=== PATIENT | female | born 1995 | race Caucasian/White ===

== ENCOUNTER 2017-09-11 12:10 | Emergency (ER) | payer BC, SELFPAY ==
[2017-09-11 12:11] VITALS: BP 127/74; PULSE 81; RESP 16; TEMP 36.4; O2SAT 99; BMI 26.3
--- NOTE | 2017-09-11 12:27 | RAD_ITS ---
STUDY: X-RAY CHEST REASON FOR EXAM: Female, 21 years old. Cough TECHNIQUE: PA and lateral views of the chest. COMPARISON: None. FINDINGS: The lungs are clear and expanded. There is no demonstrated pleural abnormality. Normal size heart. Normal mediastinum and viv. Normal visualized pulmonary arteries. Normal visualized aortic arch and descending thoracic aorta. Mild dextroscoliosis of the midthoracic spine noted. Normal visualized ribs, clavicles, and shoulders. There is no demonstrated abnormality of the visualized soft tissue structures of the upper abdomen. RAD/Chest PA and Lateral IMPRESSION: No acute intrathoracic process. Electronically Signed: Nakita Pineda MD at 13:11 EDT Tel , Service support ,
[2017-09-11] MEDS: 0.9% Normal Saline 1,000 ML 1000 ML IV (12:45)
[2017-09-11] MEDS: Ondansetron 4 MG/2 ML Vial IV (12:45)
[2017-09-11] MEDS: Ketorolac 30 MG/ML Syringe IV (12:46)
[2017-09-11 13:09] LABS: Absolute Lymphocyte Count 1.33 X10^3/ul (0.83-4.51); Absolute Neutrophil Count 3.6 X10^3/uL (2.0-7.7); Basophil# 0.03 X10^3/uL; Basophil% 0.5 % (0-1); Eosinophil# 0.16 X10^3/uL; Eosinophils% 2.9 % (0-5); Hematocrit 41.9 % (37-47); Hemoglobin 14.8 g/dl (12.0-15.0); Lymphocyte # 1.33 X10^3/ul (4.0); Lymphocyte % 23.9 % (19-41); Mean Corp Hgb Conc 35.3 g/gl (32-36); Mean Corpuscular Hgb 29.8 pg (27.0-32.0); Mean Corpuscular Volume 84.5 fL (81-99); Mean Platelet Vol. 9.8 fl (6.2-12.0); Monocyte# 0.48 X10^3/uL; Monocyte% 8.6 % (0-10); Neutrophil # 3.56 X10^3/uL (2.7-7.7); Neutrophil % 63.9 % (47-70); Platelet Count 276 K/mm3 (150-450); RBC Distribution Width CV 12.3 % (11.6-14.6); RBC Distribution Width SD 37.2 fl (35.1-43.9); Red Blood Count 4.96 M/mm3 (4.2-5.4); White Blood Count 5.6 K/mm3 (4.4-11.0)
[2017-09-11 13:12] LABS: POSITIVE COUNT NO; POSITIVE DIFFERENTIAL NO; POSITIVE MORPHOLOGY NO
[2017-09-11 13:17] LABS: Bacteria 0 SEEN /hpf (None Seen); Mucous, Urine 0 SEEN /hpf (<or=2+); Red Blood Cells-Urine 0 SEEN /hpf (0-5); White Blood Cells 0 SEEN /hpf (0-5)
[2017-09-11 13:20] LABS: Color, Urine Yellow (Yellow); Glucose, Dipstick Normal (Normal); Ketone-Dipstick Negative (Negative); Leukocyte Esterase-Dipstick 25 /ul (Negative); Nitrite-Dipstick Negative (Negative); Occult Blood-Urine Negative /ul (Negative); Protein-Dipstick Negative (Negative); Urine Bilirubin Dipstick Negative (Negative); Urine Clarity Clear (Clear); Urine Urobilinogen Normal (Normal)
[2017-09-11 13:24] LABS: Anion Gap 7 (5-15); BUN 14 mg/dL (7-18); BUN/Creat Ratio 18.7 RATIO (10-20); Calcium,Total 8.8 mg/dL (8.5-10.1); Chloride 108 mmol/L (98-107); Creatinine, Serum 0.75 mg/dL (0.55-1.02); EST Glomerular Filtration Rate 103 mL/min (>60); Est Glom Filt Rate - Afr Amer 125 mL/min (>60); Estimated Creatinine Clearance 115.39 ml/min; Glucose 100 mg/dL (74-106); Potassium 3.7 mmol/L (3.5-5.1); Sodium Level 142 mmol/L (136-145)
[2017-09-11 13:26] LABS: Squamous Epithelial Cells - UA 5-10 SEEN /hpf (5-10)
[2017-09-11 13:33] LABS: Pregnancy, Serum, hCG Quali. NEGATIVE Negative (0-9 Nonpreg)
--- NOTE | 2017-09-11 14:01 | ED.VISSUMM ---
- ER Visit Summary Date of Service: 09/11/17 Chief Complaint: Abdominal pain History of Present Illness: The patient is a [address] [facility] She reports that she has abdominal pain began 4-5 days ago. Sick continuous cramping, aching pain. It is 9 out of 10 at worst and 6 out of 10 currently. Is worsened by food and relieved by heat. She has had nausea without vomiting. She reports her last bowel movement was yesterday. She has had no diarrhea, melena, or hematochezia. No dysuria or frequency. No vaginal bleeding or discharge. Her last menstrual period was 3 weeks ago. Physical Examination: Vitals: Stable. Afebrile. General: Well-nourished and well-developed. Head: Normocephalic atraumatic. Neck: Supple, no lymphadenopathy. No JVD. Nontender. Cardiovascular: Regular rate and rhythm. No murmurs. Respiratory: No respiratory distress. Clear to auscultation bilaterally. Abdominal: Soft, mild diffuse tenderness to palpation, nondistended, normal bowel sounds. No guarding, rebound, or peritoneal signs. Back: Nontender. Extremities: Nontender, no edema. Skin: Normal color, no rash. Neurologic: Alert and oriented ?3. Cranial nerves II through XII are intact. Normal strength and sensation. Psych: Normal affect. Test Results: CBC is normal. Chem-7 is more for chloride of 108. UA is negative. test is negative. Emergency Department Course and Treatment: Patient treated with Toradol and Zofran IV. She is resting comfortably. Treatment Plan: Patient will be discharged with Bentyl and Zofran. Instructed follow-up her primary care physician in 3-5 days not improving. Disposition: To home in improved and stable condition. Impression: 1. Abdominal pain, uncertain cause. This note was generated with [employer] dictation software. It may contain incorrect words, spelling, and punctuation that were not noted in review of the chart prior to signing ED Disposition - Plan for ED Patient: Chief Complaint: Abd Pain Instructions: ED Abdominal Pain Unkn Cause Prescriptions: Ondansetron [Zofran Odt] 4 mg PO Q8H PRN PRN #10 tablet PRN Reason: Nausea Dicyclomine HCl [Bentyl] 20 mg PO TIDAC #20 capsule Referrals: Rebecca Gallegos MD [Primary Care Provider] - 3-5 Days if not improving
--- NOTE | 2017-09-11 14:12 | ED.DCSUM_ITS ---
- ER Visit Summary Date of Service: 09/11/17 Chief Complaint: Abdominal pain History of Present Illness: The patient is a [address] [facility]. She reports that she has abdominal pain began 4-5 days ago. Sick continuous cramping, aching pain. It is 9 out of 10 at worst and 6 out of 10 currently. Is worsened by food and relieved by heat. She has had nausea without vomiting. She reports her last bowel movement was yesterday. She has had no diarrhea, melena, or hematochezia. No dysuria or frequency. No vaginal bleeding or discharge. Her last menstrual period was 3 weeks ago. Physical Examination: Vitals: Stable. Afebrile. General: Well-nourished and well-developed. Head: Normocephalic atraumatic. Neck: Supple, no lymphadenopathy. No JVD. Nontender. Cardiovascular: Regular rate and rhythm. No murmurs. Respiratory: No respiratory distress. Clear to auscultation bilaterally. Abdominal: Soft, mild diffuse tenderness to palpation, nondistended, normal bowel sounds. No guarding, rebound, or peritoneal signs. Back: Nontender. Extremities: Nontender, no edema. Skin: Normal color, no rash. Neurologic: Alert and oriented ?3. Cranial nerves II through XII are intact. Normal strength and sensation. Psych: Normal affect. Test Results: CBC is normal. Chem-7 is more for chloride of 108. UA is negative. test is negative. Emergency Department Course and Treatment: Patient treated with Toradol and Zofran IV. She is resting comfortably. Treatment Plan: Patient will be discharged with Bentyl and Zofran. Instructed follow-up her primary care physician in 3-5 days not improving. Disposition: To home in improved and stable condition. Impression: 1. Abdominal pain, uncertain cause. This note was generated with [employer] dictation software. It may contain incorrect words, spelling, and punctuation that were not noted in review of the chart prior to signing ED Disposition - Plan for ED Patient: Chief Complaint: Abd Pain Instructions: ED Abdominal Pain Unkn Cause Prescriptions: Ondansetron [Zofran Odt] 4 mg PO Q8H PRN PRN #10 tablet PRN Reason: Nausea Dicyclomine HCl [Bentyl] 20 mg PO TIDAC #20 capsule Referrals: Rebecca Gallegos MD [Primary Care Provider] - 3-5 Days if not improving
[2017-09-11 14:19] VITALS: BP 114/63; PULSE 68; RESP 16; O2SAT 97
== END 2017-09-11 14:26 | disposition home or self-care (01) ==
LOC: ED 12:57
PROVIDERS: Emergency Provider Emergency Medicine; Family Provider Internal Medicine; PCP Internal Medicine
DX: R10.9 Unspecified abdominal pain (principal); R11.0 Nausea; R06.00 Dyspnea, unspecified; R05 Cough; R51 Headache; E28.2 Polycystic ovarian syndrome
CPT/HCPCS: 71046; 80048; 81001; 84703; 85025; 96361; 96374; 96375; 99283; J7030; J2405

== ENCOUNTER 2017-11-06 20:15 | Emergency (ER) | payer BC, SELFPAY ==
[2017-11-06 20:16] VITALS: BP 124/86; PULSE 78; RESP 18; TEMP 36.8; O2SAT 98; BMI 26.8
[2017-11-06 20:25] VITALS: O2SAT 100
--- NOTE | 2017-11-06 21:06 | ED.VISSUMM ---
- ER Visit Summary Date of Service: 11/06/17 Chief Complaint: Shortness of breath History of Present Illness: The patient is a 22 F presenting with 3 days of upper respiratory symptoms, rhinorrhea, and cough. She had shortness of breath and wheezing 2 days ago and went to the urgent care. She was given an inhaler and improve transiently but is still coughing and having mild wheezing. She denies recent travel or lower extremity pain/swelling. Denies history of DVT or PE. Never had chest pain during this illness. Physical Examination: Those are within normal limits. Pulse ox is 98% on room air. She is not tachycardic or tachypneic. She has no tenderness along the lower extremity venous system or palpable cords. No evidence of DVT. She does have faint end expiratory wheezing in all lung sheth but is not in distress. Test Results: Chest x-ray negative Emergency Department Course and Treatment: The rest x-rays negative. She was given a DuoNeb and her pulse ox is now 100%. control pills but has no recent travel or clinical evidence of DVT. Additionally, she has no chest pain. She has upper respiratory symptoms and wheezing. I think it is reasonable to start her on an oral steroid and she will continue her inhaler. She will return if worse. Treatment Plan: oral Steroids. Disposition: Home stable condition Impression: Initial encounter shortness of breath, upper respiratory infection, reactive airway disease This note was generated with [employer] dictation software. It may contain incorrect words, spelling, and punctuation that were not noted in review of the chart prior to signing ED Disposition - Plan for ED Patient: Chief Complaint: Shortness of Breath Instructions: ED Upper Resp Infec Abx Tx, ED Reactive Airway Disease Prescriptions: Prednisone [Deltasone] 40 mg PO DAILY #10 tablet Referrals: Rebecca Gallegos MD [Primary Care Provider] - 1-2 Days if not improving
[2017-11-06 21:14] VITALS: PULSE 77; RESP 14
[2017-11-06] MEDS: Ipratropium/Albuterol Sulfate 3 ML AMPUL.NEB INHALATION (21:14)
--- NOTE | 2017-11-06 21:20 | RAD_ITS ---
STUDY: X-RAY CHEST REASON FOR EXAM: Female, 22 years old. Cough TECHNIQUE: PA and lateral COMPARISON: September 11, 2017 FINDINGS: The lungs are clear and expanded. There is no demonstrated pleural abnormality. Normal size heart. Normal mediastinum and viv. Normal visualized pulmonary arteries. Normal visualized aortic arch and descending thoracic aorta. Normal visualized thoracic spine. Normal visualized ribs, clavicles, and shoulders. There is no demonstrated abnormality of the visualized soft tissue structures of the upper abdomen. No significant change since prior exam RAD/Chest PA and Lateral IMPRESSION: Normal x-ray examination of the chest. Electronically Signed: Seth Lizarraga MD at 21:44 EDT , Service support ,
[2017-11-06 22:23] VITALS: BP 118/66; PULSE 77; O2SAT 100
[2017-11-06] MEDS: predniSONE 20 MG Tablet 60 MG PO (22:26)
== END 2017-11-06 22:27 | disposition home or self-care (01) ==
LOC: ED 21:03
PROVIDERS: Emergency Provider Emergency Medicine; Family Provider Internal Medicine; PCP Internal Medicine
DX: J06.9 Acute upper respiratory infection, unspecified (principal); J98.8 Other specified respiratory disorders; R06.00 Dyspnea, unspecified; E28.2 Polycystic ovarian syndrome
CPT/HCPCS: 71046; 94640; 99283

== ENCOUNTER 2018-11-30 20:49 | Emergency (ER) | payer BC, SELFPAY ==
[2018-11-30 20:49] VITALS: BP 104/62; PULSE 81; RESP 17; TEMP 36.7; O2SAT 99; BMI 26.9
[2018-11-30 21:19] LABS: Mucous, Urine 0 SEEN /hpf (<or=2+)
[2018-11-30 21:21] LABS: Color, Urine Yellow (Yellow); Glucose, Dipstick Normal (Normal); Ketone-Dipstick 50 mg/dl (Negative); Leukocyte Esterase-Dipstick 25 /ul (Negative); Nitrite-Dipstick Negative (Negative); Occult Blood-Urine 25 /ul (Negative); Protein-Dipstick 15 mg/dl (Negative); Urine Clarity Clear (Clear); Urine Urobilinogen 1 mg/dl (Normal)
[2018-11-30 21:25] LABS: Urine Bilirubin Dipstick 1 mg/dL (Negative)
[2018-11-30 21:27] LABS: Absolute Neutrophil Count 2.6 X10^3/uL (2.0-7.7); Basophil# 0.01 X10^3/uL; Basophil% 0.2 % (0-1); Eosinophil# 0.12 X10^3/uL; Eosinophils% 2.5 % (0-5); Hematocrit 41.8 % (37-47); Hemoglobin 14.4 g/dl (12.0-15.0); Lymphocyte % 31.8 % (19-41); Mean Corp Hgb Conc 34.4 g/gl (32-36); Mean Corpuscular Hgb 28.7 pg (27.0-32.0); Mean Corpuscular Volume 83.4 fL (81-99); Mean Platelet Vol. 9.1 fl (6.2-12.0); Monocyte# 0.53 X10^3/uL; Monocyte% 11.3 % (0-10); Neutrophil # 2.55 X10^3/uL (2.7-7.7); Neutrophil % 54.2 % (47-70); Platelet Count 230 K/mm3 (150-450); RBC Distribution Width SD 39.1 fl (35.1-43.9); Red Blood Count 5.01 M/mm3 (4.2-5.4); White Blood Count 4.7 K/mm3 (4.4-11.0)
[2018-11-30 21:29] LABS: POSITIVE COUNT NO; POSITIVE DIFFERENTIAL NO; POSITIVE MORPHOLOGY NO
[2018-11-30 21:31] LABS: Red Blood Cells-Urine 0-5 SEEN /hpf (0-5); Squamous Epithelial Cells - UA 10-25 SEEN /hpf (5-10); White Blood Cells 0-5 SEEN /hpf (0-5)
[2018-11-30 21:32] LABS: Bacteria 2+ /hpf (None Seen)
[2018-11-30 21:41] LABS: AST(SGOT) 30 U/L (15-37); Alanine Aminotransfer ALT/SGPT 30 U/L (13-56); Albumin, Serum 3.7 g/dL (3.2-5.0); Alkaline Phosphatase 86 U/L (45-117); Anion Gap 8 (5-15); BUN 13 mg/dL (7-18); BUN/Creat Ratio 16.2 RATIO (10-20); Bilirubin, Direct 0.16 mg/dL (0.00-0.30); Calcium,Total 8.6 mg/dL (8.5-10.1); Chloride 107 mmol/L (98-107); EST Glomerular Filtration Rate 94 mL/min (>60); Est Glom Filt Rate - Afr Amer 114 mL/min (>60); Estimated Creatinine Clearance 106.36 ml/min; Globulin 3.6 g/dL (2.2-4.2); Glucose 101 mg/dL (74-106); Lipase 231 U/L (73-393); Potassium 3.3 mmol/L (3.5-5.1); Protein, Total 7.3 g/dL (6.4-8.2); Sodium Level 139 mmol/L (136-145)
[2018-11-30] MEDS: Ondansetron 4 MG/2 ML Vial IV (21:46)
[2018-11-30] MEDS: Ketorolac 30 MG/ML Syringe IV (21:46)
[2018-11-30] MEDS: 0.9% Normal Saline 1,000 ML 999 ML IV (21:46)
[2018-11-30 21:47] VITALS: PULSE 88; RESP 16; O2SAT 98
--- NOTE | 2018-11-30 23:00 | ED.DCSUM_ITS ---
- ER Visit Summary Date of Service: 11/30/18 Chief Complaint: Abdominal pain History of Present Illness: The patient is a 23 F presenting with abdominal pain. Patient states this started on . She has had intermittent pain diffusely. She states sometimes it is in her upper abdomen sometimes it is in her lower abdomen. She has had nausea without vomiting. She has had diarrhea. She denies blood in her stool. Denies urinary complaints. She had a fever up to 100.0 on . No fever today. She has tried ibuprofen, acetaminophen, Imodium at home. She has a history of PCOS. Denies other complaints. Physical Examination: Vitals are stable. Patient is afebrile. Alert no acute distress. HEENT exam is unremarkable. Neck is supple. Lungs are clear and equal bilaterally. Heart is regular rate and rhythm. Abdomen is soft nontender nondistended. No guarding or rebound Extremities are unremarkable. Skin is warm and dry. Remainder of exam is unremarkable. Emergency Department Course and Treatment: Patient was given Toradol, Zofran IV. CBC, chemistries unremarkable. Liver lipase are normal. Urinalysis shows 0-5 white blood cells, 0-5 red blood cells. hCG negative. On reevaluation, patient's pain has improved. She is advised to follow-up with her primary care physician. Advised return ED for worsening complaints. Disposition: Discharge home Impression: Abdominal pain This note was generated with [employer] dictation software. It may contain incorrect words, spelling, and punctuation that were not noted in review of the chart prior to signing ED Disposition - Plan for ED Patient: Referrals: Rebecca Gallegos MD [Primary Care Provider] -
[2018-11-30 23:02] LABS: Internal QC Validated? YES +Cl - CLEAR BKGD; Pregnancy, Urine Negative Negative
--- NOTE | 2018-11-30 23:10 | ED.DEP ---
ED Disposition - Plan for ED Patient: Instructions: ED Abdominal Pain Unkn Cause Prescriptions: Ondansetron [Zofran Odt] 4 mg PO Q8H PRN PRN #10 tablet PRN Reason: Nausea Dicyclomine HCl [Bentyl] 20 mg PO TIDAC #20 capsule Referrals: Rebecca Gallegos MD [Primary Care Provider] -
[2018-11-30 23:17] VITALS: BP 132/78; PULSE 78; RESP 18; O2SAT 98
--- NOTE | 2018-11-30 23:26 | ED.DEP ---
ED Disposition - Plan for ED Patient: Instructions: ED Abdominal Pain Unkn Cause Prescriptions: Dicyclomine HCl [Bentyl] 20 mg PO TIDAC #20 capsule Ondansetron HCl [Zofran] 4 mg PO TID PRN #12 tablet PRN Reason: Nausea Referrals: Rebecca Gallegos MD [Primary Care Provider] -
== END 2018-11-30 23:29 | disposition home or self-care (01) ==
PROVIDERS: Emergency Provider Emergency Medicine; Family Provider Internal Medicine; PCP Internal Medicine
DX: R10.9 Unspecified abdominal pain (principal); R11.0 Nausea; R19.7 Diarrhea, unspecified; R50.9 Fever, unspecified; E28.2 Polycystic ovarian syndrome; Z72.0 Tobacco use
CPT/HCPCS: 80048; 80076; 81001; 81025; 83690; 85025; 96361; 96374; 96375; 99284; J7030; A4216; J2405

== ENCOUNTER 2019-02-11 11:42 | Emergency (ER) | payer BC, SELFPAY ==
[2019-02-11 11:43] VITALS: BP 119/72; PULSE 77; RESP 16; TEMP 36.3; O2SAT 98; BMI 25.8
--- NOTE | 2019-02-11 12:05 | ED.DCSUM_ITS ---
History of Present Illness Informant: Patient Onset: Yesterday Timing: Continuous Current Severity: Moderate Maximum Severity: Severe Narrative: She has a 23-year-old female presenting with 1 day of right lower quadrant a bdominal pain. She states started 2 PM yesterday while she was at work. She notes she does not do a strenuous job. The pain sometimes radiates down her leg or across her abdomen. The pain seems to be worse with movement and better with rest. Patient states when she woke up today the pain was significantly worse which made her come to the emergency room. She did not take anything for pain at home. She denies associated nausea or vomiting. She states she is a history of IBS and her bowel movements have been irregular but this is normal for her. She denies any blood or black stools. Denies any associated hematuria, dysuria, abnormal vaginal discharge or bleeding. Her last menstrual period was 01/21/2019. Patient states she is not concern for . Patient denies any other complaints at this time. Prior similar symptoms: No <Sonya Jacques - Last Filed: 02/11/19 15:21> <Nato Cantrell - Last Filed: 02/11/19 16:03> Chief Complaint: Abd Pain Past Medical History Past Medical History: - - PCOD, IBS Surgical History: no surgical history Smoking Status: Current some day smoker <Sonya Jacques - Last Filed: 02/11/19 15:21> <Nato Cantrell - Last Filed: 02/11/19 16:03> - Allergies and Home Meds Allergies/Adverse Reactions: Allergies No Known Allergies Allergy (Verified 02/11/19 11:42) Primary Care Physician: Rebecca Gallegos MD [Primary Care Provider] - Review of Systems All systems negative except as indicated Gastrointestinal: Reports: Abdominal pain - RLQ <Sonya Jacques - Last Filed: 02/11/19 15:21> Physical Exam Vital Signs/Narrative: Vital Signs Temp Pulse Resp BP Pulse Ox 02/11/19 11:43 97.3 F L 77 16 119/72 98 Inital Vital Signs reviewed: Yes General: Well nourished, Well developed, No Acute Distress Head: Normocephalic, Atraumatic Eyes: Perrl, EOMI ENT: Moist mucous membranes, No rhinorrhea Neck: Supple, Nontender Cardiovascular: Regular rate, Regular rhythm, No murmurs Respiratory: No distress, CTA bilaterally, Chest nontender Abdomen: Soft, Nondistended, Normal bowel sounds, Tender, - - Pain at McBurney's point, positive psoas sign, obturator sign. Negative for: Guarding, Rebound tenderness Back: Nontender, Normal Inspection. Negative for: CVA tenderness Extremities: Nontender, No edema Skin: Normal color, No rash Neurological: Alert, Oriented x3, Normal Strength, Normal Sensation Psychological: Normal affect, Normal Mood <Sonya Jacques - Last Filed: 02/11/19 15:21> Vital Signs/Narrative: Vital Signs Pulse Resp BP Pulse Ox 02/11/19 15:30 62 18 117/76 99 02/11/19 14:00 78 16 119/64 99 <Nato Cantrell - Last Filed: 02/11/19 16:03> Diagnostic/Tx/Re-eval CT abdomen and pelvis with contrast?no acute process - Medical Decision Making Patient evaluated for 24 hours right lower quadrant abdominal pain. On initial evaluation she appears nontoxic in no acute distress. She has normal vital signs. Patient is given a dose of IV morphine. Patient has normal labs. Urine is contaminated and urine culture sent. Her symptoms are not consistent with a urinary tract infection. CT of the abdomen and pelvis did not show any acute process. I think patient is safe for discharge. She has an appointment to see her DRESS C[employer]TER in 1 week. This may be related to patient's PCOS however I do not suspect torsion I do not think an emergent ultrasound is indicated at this time. Patient be discharged home. She declines any nausea medication at discharge. She states she has Motrin and Tylenol to take at home as needed. Patient is counseled on signs and symptoms requiring return to the emergency room. Patient verbalizes agreement and understand this plan. Patient discharged home in stable and improved condition. <Sonya Jacques - Last Filed: 02/11/19 15:21> - Medical Decision Making Attending note: Patient presented secondary to right lower quadrant abdominal pain. Physical exam did show some reproducible abdominal pain in the right lower quadrant. CBC chemistry unremarkable. Urinalysis did show some bacteria but no leukocytes, therefore it was cultured. CT was negative. Patient was g iven reassurance and was discharged. <Nato Cantrell - Last Filed: 02/11/19 16:03> ED Disposition <Sonya Jacques - Last Filed: 02/11/19 15:21> <Nato Cantrell - Last Filed: 02/11/19 16:03> - Plan for ED Patient: Disposition: Home or Assisted Living Diagnosis: RLQ abdominal pain Instructions: ABDOMINAL PAIN, Unknown Cause, (Female) Referrals: Rebecca Gallegos MD [Primary Care Provider] -
[2019-02-11 12:19] LABS: Color, Urine Yellow (Yellow); Glucose, Dipstick Normal (Normal); Ketone-Dipstick 5 mg/dl (Negative); Leukocyte Esterase-Dipstick 25 /ul (Negative); Nitrite-Dipstick Negative (Negative); Occult Blood-Urine 25 /ul (Negative); Protein-Dipstick 30 mg/dl (Negative); Urine Bilirubin Dipstick Negative (Negative); Urine Clarity Clear (Clear); Urine Urobilinogen 1 mg/dl (Normal)
--- NOTE | 2019-02-11 12:20 | CT_ITS ---
STUDY: CT ABDOMEN AND PELVIS WITH CONTRAST REASON FOR EXAM: Female, 23 years old. Abdominal pain, nausea RADIATION DOSAGE (If Supplied By Facility): CTDIvol = ( 13.45 ) mGy, DLP = ( 656.90 ) mGycm TECHNIQUE: Transaxial images were obtained from the dome of the diaphragm to the symphysis pubis with oral contrast. 100 IV/Oral Isovue 300 was administered. Sagittal and coronal images were reconstructed. Individualized dose optimization techniques were used for this CT. COMPARISON: None. FINDINGS: The visualized lung bases are unremarkable. The visualized portions of the heart are within normal limits. Normal liver. Normal gallbladder and extrahepatic biliary system. Normal spleen. Normal pancreas. Normal bilateral adrenal glands. Normal right kidney. Normal left kidney. Normal visualized stomach. Normal small intestine. Normal colon. The appendix is visualized and appears normal. Normal abdominal aorta. Normal inferior vena cava. Normal retroperitoneum. Normal urinary bladder. Intrauterine device within the uterus. Normal abdominal wall. Normal osseous structures. CT/Abdomen/Pelvis WITH Contrast IMPRESSION: Normal enhanced CT of the abdomen and pelvis. Electronically Signed: Zeus Gillespie MD at 14:23 EDT Tel , Service support ,
[2019-02-11 12:22] LABS: Internal QC Validated? YES +Cl - CLEAR BKGD; Pregnancy, Urine Negative Negative
[2019-02-11 12:24] LABS: Absolute Lymphocyte Count 1.66 X10^3/uL (0.83-4.51); Absolute Neutrophil Count 2.3 X10^3/uL (2.0-7.7); Basophil# 0.04 X10^3/uL; Basophil% 0.9 % (0-1); Eosinophil# 0.12 X10^3/uL; Eosinophils% 2.6 % (0-5); Hematocrit 43.9 % (37-47); Hemoglobin 14.8 g/dL (12.0-15.0); Lymphocyte # 1.66 X10^3/ul (4.0); Lymphocyte % 36.5 % (19-41); Mean Corp Hgb Conc 33.7 g/dL (32-36); Mean Corpuscular Hgb 29.2 pg (27.0-32.0); Mean Corpuscular Volume 86.6 fL (81-99); Monocyte# 0.43 X10^3/uL; Monocyte% 9.5 % (0-10); NRBC Flagged by Analyzer 0 % (0-5); Neutrophil # 2.29 X10^3/uL (2.7-7.7); Neutrophil % 50.3 % (47-70); Platelet Count 227 K/mm3 (150-450); RBC Distribution Width CV 12.4 % (11.6-14.6); RBC Distribution Width SD 38.9 fl (35.1-43.9); Red Blood Count 5.07 M/mm3 (4.2-5.4); White Blood Count 4.6 K/mm3 (4.4-11.0)
[2019-02-11 12:31] LABS: Bacteria 3+ /hpf (None Seen); Mucous, Urine 3+ /hpf (<or=2+); Red Blood Cells-Urine 0-5 SEEN /hpf (0-5); Squamous Epithelial Cells - UA 5-10 SEEN /hpf (5-10); White Blood Cells 0-5 SEEN /hpf (0-5)
[2019-02-11] MEDS: Ondansetron 4 MG/2 ML Vial IV (12:36)
[2019-02-11] MEDS: Morphine 4 MG/ML Syringe IV (12:36)
[2019-02-11 12:37] LABS: ALB/GLOB Ratio 1.3 RATIO (0.9-2.4); AST(SGOT) 28 U/L (15-37); Alanine Aminotransfer ALT/SGPT 48 U/L (13-56); Albumin, Serum 4.3 g/dL (3.2-5.0); Alkaline Phosphatase 100 U/L (45-117); Anion Gap 8 (5-15); BUN 10 mg/dL (7-18); BUN/Creat Ratio 12.7 RATIO (10-20); Calcium,Total 9.1 mg/dL (8.5-10.1); Chloride 108 mmol/L (98-107); Creatinine, Serum 0.79 mg/dL (0.55-1.02); EST Glomerular Filtration Rate 96 mL/min (>60); Est Glom Filt Rate - Afr Amer 116 mL/min (>60); Globulin 3.4 g/dL (2.2-4.2); Glucose 86 mg/dL (74-106); Potassium 3.9 mmol/L (3.5-5.1); Protein, Total 7.7 g/dL (6.4-8.2); Sodium Level 143 mmol/L (136-145)
[2019-02-11 14:00] VITALS: BP 119/64; PULSE 78; RESP 16; O2SAT 99
[2019-02-11] MEDS: Ketorolac 15 MG/ML Vial IV (15:23)
[2019-02-11 15:30] VITALS: BP 117/76; PULSE 62; RESP 18; O2SAT 99
== END 2019-02-11 15:30 | disposition home or self-care (01) ==
PROVIDERS: Emergency Provider Emergency Medicine; Family Provider Internal Medicine; PCP Internal Medicine
DX: R10.31 Right lower quadrant pain (principal); R82.71 Bacteriuria; E28.2 Polycystic ovarian syndrome; K58.9 Irritable bowel syndrome, unspecified; F17.200 Nicotine dependence, unspecified, uncomplicated
CPT/HCPCS: 74177; 80053; 81001; 81025; 85025; 87086; 87088; 96374; 96375; 99282; Q9967; A4216; J2405

== ENCOUNTER → 2022-08-03 | Outpatient (CLI) | payer BC, SELFPAY ==
--- NOTE | 2022-08-03 15:29 | VDLE_ITS ---
Reason For Study: LEG SWELLING RIGHT LEFT CFV is compressible, spontaneous, phasic, GSV is normal. competent and demonstrates normal CFV is compressible, spontaneous, phasic, augmentation. competent, and demonstrates normal Procedure augmentation. This is a venous duplex using B-mode, color FV is compressible, spontaneous, phasic, flow and spectral Doppler. competent and demonstrates normal Exam performed in department. augmentation. The exam was diagnostic. POP V is compressible, spontaneous, phasic, A preliminary report was called and/or faxed competent and demonstrates normal to Ann Anderson CNM. augmentation. T/P Trunk is compressible. PTV is compressible. LT PerV is compressible. VL/Venous Duplex US, Unilateral Interpretation Summary There is no evidence of left lower extremity deep vein thrombosis. Left great s aphenous vein appears patent and compressible segmentally. Normal flow patterns right common femoral vein Ordering Physician: Ann Anderson Referring Physician: Ann Anderson Performed By: Jesús Gregorio RVT
== END | disposition home or self-care (01) ==
PROVIDERS: PCP Internal Medicine; Referring Provider Advanced Practice Midwife; Visit Provider Advanced Practice Midwife
DX: M79.89 Other specified soft tissue disorders (principal); R23.8 Other skin changes; Z3A.29 29 weeks gestation of pregnancy
CPT/HCPCS: 93971

== ENCOUNTER 2022-10-10 16:00 | Inpatient (IN) | payer BC, SELFPAY ==
[2022-10-10] VITALS (14 sets, daily range): BP systolic 105–134; BP diastolic 54–81; PULSE 73–197; TEMP 36.6–37; O2SAT 77–100; BMI 31.3
[2022-10-10] MEDS: LACTATED RINGERS 500 ML 999 ML IV (16:35)
[2022-10-10 16:53] LABS: Absolute Lymphocyte Count 1.24 X10^3/uL (0.83-4.51); Absolute Neutrophil Count 7.4 X10^3/uL (2.0-7.7); Basophil# 0.03 X10^3/uL; Basophil% 0.3 % (0-1); Eosinophil# 0.15 X10^3/uL; Eosinophils% 1.6 % (0-5); Hemoglobin 12.1 g/dL (12.0-15.0); Lymphocyte # 1.24 X10^3/ul (0.83-4.51); Lymphocyte % 13.1 % (19-41); Mean Corp Hgb Conc 31.8 g/dL (32-36); Mean Corpuscular Hgb 27.4 pg (27.0-32.0); Mean Platelet Vol. 9.3 fl (6.2-12.0); Monocyte# 0.62 X10^3/uL; Monocyte% 6.6 % (0-10); NRBC Flagged by Analyzer 0 % (0-5); Neutrophil # 7.35 X10^3/uL (2.7-7.7); Neutrophil % 77.9 % (47-70); Platelet Count 281 K/mm3 (150-450); RBC Distribution Width CV 14.2 % (11.6-14.6); RBC Distribution Width SD 43.8 fl (35.1-43.9); Red Blood Count 4.42 M/mm3 (4.2-5.4); White Blood Count 9.4 K/mm3 (4.4-11.0)
[2022-10-10] MEDS: Lactated Ringers 1,000 ML 50 ML IV (17:06)
[2022-10-10] MEDS: 0.9% Normal Saline Single 100 ML IV.SOLN. INTRA-UTER (18:12)
--- NOTE | 2022-10-10 18:19 | HP.PCM.OB_ITS ---
HPI - General General Date of Admission: 10/10/22 HPI Narrative DESMOND PETIT, is a 26 F G1 PO at 38.6 weeks gestation who presents for induction of labor for GDM A2. Maternal Data Information ANNEMARIE Calculator Estimated Delivery Date Method Current WG Current Estimate 10/18/22 Manual 38w 6d PFSH PFSH Medical History Anxiety Asthma Depression Gestational diabetes Headache PCOS (polycystic ovarian syndrome) Vitamin D deficiency Home Medications Humulin N NPH Insulin KwikPen 12 units OTHER QHS gdm 10/10/22 [History Last Taken Unknown] Humulin N NPH Insulin KwikPen 14 units OTHER DAILY gdm 10/10/22 [History Last Taken Unknown] PNV 153-FA 400 mcg-om3 35 mg-dha 25 mg-epa 5 mg-fish oil chew tablet ( Gummies) 2 tab PO DAILY 10/10/22 [History Last Taken 1 Day Ago ~10/09/22] sertraline 25 mg tablet (Zoloft) 25 mg PO DAILY depression/anxiety 10/10/22 [History Last Taken 1 Day Ago ~10/09/22] Allergy/AdvReac Type Severity Reaction Status Date / Time No Known Allergies Allergy Verified 10/10/22 16:13 Surgical History [place] teeth extracted Social History Smoking Status: Former smoker History Elective abortions Hx Para 0 Spontaneous abortions Hx # Term Pregnancies Ectopic pregnancies Hx # Pregnancies Multiple births # of living children Visit Details OB Flowsheet Initial Weight: Not Recorded Date -?-?-?-?-?-?-?-?-?-?-?-?- EGA Weight BP Urine Prot -?-?-?-?-?-?-?-?-?-?-?-?- Glucose FHR FuHt Pres Dilation -?-?-?-?-?-?-?-?-?-?-?-?- Effaced St Visit Note 10/10/22 -?-?-?-?-?-?-?-?-?-?-?-?- 38w 6d 200 lb 2.876 oz 127/ 81 118/63 -?-?-?-?-?-?-?-?-?-?-?-?- -?-?-?-?-?-?-?-?-?-?-?-?- ROS Eyes Eyes: Denies blurry vision, change in vision or spots in vision ENT HEENT: Denies dizziness or headache(s) Cardiovascular Cardiovascular: Denies abdominal pain, chest pain or dyspnea Respiratory/Chest Respiratory/Chest: Denies cough, dyspnea, shortness of breath at rest or shortness of breath with exertion Gastrointestinal Gastrointestinal: Denies abdominal pain, diarrhea or vomiting Genitourinary Genitourinary: Denies change in urinary stream, difficulty urinating or dysuria Musculoskeletal Musculoskeletal: Reports none Integumentary Integumentary: Denies rash Neurologic Neurologic: Denies dizziness, headache(s), memory loss or weakness Psychiatric Psychiatric: Reports none Vital Signs Vital Signs Vital Signs: 10/10/22 16:09 10/10/22 16:09 10/10/22 16:09 Pulse Rate 197 H Blood Pressure 127/81 H BP Systolic 127 BP Diastolic 81 Pulse Ox 84 10/10/22 16:09 10/10/22 16:09 10/10/22 16:30 Pulse Rate 89 73 Blood Pressure BP Systolic BP Diastolic Pulse Ox 100 10/10/22 16:30 Pulse Rate Blood Pressure BP Systolic BP Diastolic Pulse Ox 77 Weight Weight: 200 lb 2.876 oz Body Mass Index (BMI) 31.3 Physical Exam Const alert, oriented x3 and no apparent distress General Appearance: cooperative Orientation / Consciousness: awake Exam Limitations: no limitations HEENT normocephalic Head and Scalp: normal to inspection Eyes General Eye: normal appearance of both eyes Neck full ROM and no lymphadenopathy Lymph Lymphatic: no lymphadenopathy noted Chest inspection of chest normal Resp normal respiratory effort, normal air movement and clear to auscultation bilaterally Effort and Inspection: able to speak in complete sentences and symmetric chest movement Cardio regular rate and regular rhythm GI normal to inspection, nondistended, normoactive bowel sounds Back/Spine normal ROM Extremity full ROM and no calf tenderness Skin no rashes or lesions noted General Skin Exam: no breakdown Neuro oriented x3 and CN's II-XII intact bilaterally Psych mental status grossly normal and thought process normal Labs Labs Labs: Blood Type O NEGATIVE Antibody Screen NEGATIVE Hct 38.0 % (37-47) Hgb 12.1 g/dL (12.0-15.0) Syphilis Total Ab Pending RUBELLA NON IMMUNE GBS NEG Assessment & Plan (1) GDM, class A2: (2) 38 weeks gestation of : (3) History of depression: (4) Rubella non-immune status, antepartum: (5) Encounter for induction of labor: PLAN: Plan Admit to labor and delivery Routine labs Start IV and run per orders Start diabetic protocol GBS neg CE- /-3 Rivera bulb placed without incident and balloon filled with 30 cc N/S Start Pitocin IV and titrate per orders Epidural when indicated Anticipate Dr. Wilburn involved with plan of care, induction and will manage care due to GDM A2
[2022-10-10] MEDS: Oxytocin 15 Units/NS 250ml 15 UNITS/250 ML IV.SOLN 2 UNITS IV (18:25)
[2022-10-10 18:26] LABS: Syphilis Antibodies Non-reactive
[2022-10-10 19:00] LABS: Bedside Glucose 83 mg/dL (74-106)
[2022-10-10] MEDS: Acetaminophen 500 MG Tablet PO (19:25)
[2022-10-10 20:06] LABS: Bedside Glucose 79 mg/dL (74-106)
[2022-10-10 23:36] LABS: Bedside Glucose 71 mg/dL (74-106)
[2022-10-10] MEDS: Lactated Ringers 1,000 ML 200 ML IV (23:42)
[2022-10-11] VITALS (63 sets, daily range): BP systolic 87–124; BP diastolic 31–71; PULSE 61–120; RESP 15–18; TEMP 36.4–37.5; O2SAT 83–100
--- NOTE | 2022-10-11 | PLAC_PTH ---
PATIENT: DESMOND PETIT LOC: [facility] U#:[id number] AGE/SX: 26/F ROOM: WP003 RE10/10/[address]: Ayleen Ponce CNM : 1995 BED: 1 DIS: 10/13/2022 SPEC #: [id number] RECD: 10/11/22 22:53 STATUS: SONA REQ #: [id number] ARON: 10/11/22 00:[address]: Shante Manning DEPT: SURGICAL PATHOLOGY RECD BY: Emil Santa ENTERED: 10/12/22 09:48 SP TYPE: PLACENTA OTHR DR: GERMAIN Forrest Dr., MD Dr. Rebecca Russell, MD Tissues: Placenta, NOS Procedures: Surgery Specimen Level V Comments: @ Ordering doctor for SUV edited from DEANNAKOLTON to DR.DMCINT Camargo by TAVON at 10/12/22 1332 @ Submitting doctor edited from DEANNAKOLTON to DR.DMCINT Camargo by TAVON at 10/12/22 1332 HEADER OPERATION: Primary section PRE-OP DIAGNOSIS: Labor TISSUE SUBMITTED: Placenta MICROSCOPIC DIAGNOSIS Blue placenta (545 gm): Umbilical cord ? trivascular with acute funisitis, mild. Placental membranes ? acute chorioamnionitis, mild. Placental disc ? intervillous congestion and mildly increased intraparenchymal fibrin plaques. AM:aldair 10/16/2022 MICROSCOPIC DESCRIPTION Slides are reviewed. GROSS DESCRIPTION SPECIMEN: PLACENTA / CLINICAL INFORMATION: A. Weight: 3.78 kg B. Gestational Age: 39 weeks C. Sex: Male PLACENTAL WEIGHT (POST FIXATION): 545 gm PLACENTAL DIMENSIONS: 17.0 x 17.0 x 3.0 cm PLACENTAL SHAPE: Usual ovoid PLACENTAL WEIGHT FOR GESTATIONAL AGE: Over 99th percentile MEMBRANES - Present A. Insertion: Marginal B. Site of rupture from edge: At edge of placental disc C. Color of membrane: Sharma-allen D. Abnormalities: None UMBILICAL CORD - Present A. Color: Sharma-allen B. Insertion: Marginal C. Length: 27.0 cm D. Diameter: 2.0 cm E. Number of vessels: Three F. Abnormalities: None PLACENTAL DISC - Present A. Color of surface: Sharma-allen B. surface abnormalities: None C. Maternal cotyledons: Intact with minimal tears D. Attached retro placental clot: No clot E. Cut surface: Dark red and spongy F. Lesions: None G. Separate clot: Absent SECTIONS SUBMITTED: 1. Umbilical cord ( end notched) 2. Umbilical cord, placental end 3. Membrane roll 4. Placental disc, and maternal surfaces 5. Placental disc, and maternal surfaces 6. Placental disc, and maternal surfaces AM:aldair 10/15/2022 TC:2 CPT: 15118
[2022-10-11] MEDS: LACTATED RINGERS 500 ML 999 ML IV ×5 (02:27→20:35)
[2022-10-11] MEDS: fentaNYL-bupivacaine (epidural) 100 ML BAG EPIDURAL ×3 (03:44→14:50)
[2022-10-11 04:16] LABS: Bedside Glucose 75 mg/dL (74-106)
[2022-10-11] MEDS: Lactated Ringers 1,000 ML 200 ML IV ×2 (05:55→13:18)
--- NOTE | 2022-10-11 08:04 | PCM.PN.BLA ---
Progress Note Patient was seen at bedside, resting comfortably with epidural in place. Vaginal exam was performed /. IUPC was placed. Continue to increase Pitocin. heart rate was category 1. Anticipate a normal spontaneous vaginal delivery.
[2022-10-11 08:31] LABS: Bedside Glucose 69 mg/dL (74-106)
[2022-10-11 10:55] LABS: Bedside Glucose 77 mg/dL (74-106)
[2022-10-11 12:51] LABS: Bedside Glucose 68 mg/dL (74-106)
[2022-10-11 14:06] LABS: Bedside Glucose 78 mg/dL (74-106)
[2022-10-11 15:56] LABS: Bedside Glucose 74 mg/dL (74-106)
[2022-10-11 15:56] LABS: Bedside Glucose 83 mg/dL (74-106)
[2022-10-11] MEDS: Sodium Citrate/Citric Acid 30 ML UDC PO (15:59)
--- NOTE | 2022-10-11 16:00 | PN_ITS ---
Subjective Subjective pt seen at bedside, Pushing for over 3.5hrs, arrest of descent of head at +1 station. Discussed Proceeding with Primary cs - pt agreeable. we discussed risks and benefits including but not limited to infection, injury to pelvic structures including vessels and bladder. reviewed possible need for assistance with delivery - will reassess in OR- may use pillow. OR team notified. PRE OP abx ordered. Objective Data Objective Data Vital Signs: Vital Signs Temp Pulse BP Pulse Ox 98.1 F 78 95/55 L 100 10/11/22 15:28 10/11/22 15:30 10/11/22 15:30 10/11/22 15:50 Weight: 90.8 kg Body Mass Index (BMI) 31.3 Intake & Output: Intake and Output for Last 24 Hours 10/09/22 10/10/22 10/11/22 23:59 23:59 23:59 Intake Total 1476.87 / 1476.87 3181.11 / 3181.11 Output Total 2200 / 2200 Balance 1476.87 / 776.87 981.11 / 981.11 Lab / Micro Data Result Diagrams: 10/10/22 16:35 Labs: Laboratory Results - last 24 hr 10/10/22 16:35: WBC 9.4, RBC 4.42, Hgb 12.1, Hct 38.0, MCV 86.0, MCH 27.4, MCHC 31.8 L, RDW Std Deviation 43.8, RDW Coeff of Dione 14.2, Plt Count 281, MPV 9.3, Immature Gran % (Auto) 0.500, Neut % (Auto) 77.9 H, Lymph % (Auto) 13.1 L, Greenlee % (Auto) 6.6, Eos % (Auto) 1.6, Baso % (Auto) 0.3, Absolute Neuts (auto) 7.4, Absolute Lymphs (auto) 1.24, Nucleated RBC % 0 10/10/22 16:35: Blood Type O NEGATIVE, Antibody Screen Not Reportable 10/10/22 16:35: Syphilis Total Ab Non-reactive 10/10/22 16:35: Antibody Screen NEGATIVE 10/10/22 18:31: POC Glucose 83 10/10/22 19:41: POC Glucose 79 10/10/22 23:13: POC Glucose 71 L 10/11/22 03:06: POC Glucose 75 10/11/22 08:11: POC Glucose 69 L 10/11/22 10:35: POC Glucose 77 10/11/22 12:28: POC Glucose 68 L 10/11/22 13:41: POC Glucose 78 10/11/22 14:31: POC Glucose 83 10/11/22 15:37: POC Glucose 74
[2022-10-11] MEDS: Cefazolin 2 GM in 0.9% Normal Saline 100 ML IV (16:32)
--- NOTE | 2022-10-11 17:26 | OP.PCM_ITS ---
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 She was then placed in the supine position. pillow placed with 180cc saline after vaginal vault prep performed She was prepped and draped in the normal sterile fashion. Epidural Anesthesia was found to be adequate. cotter was draining- red tinged urine. . At this time a Pfannenstiel skin incision was made with a knife was carried down to the underlying layer of the fascia. The fascial incision was then extended laterally using opposing tracting. attention was then turned to the superior aspect of the fascial edge was grasped with 2 straight Mosby clamps tented up and the rectus muscle dissected off bluntly. Attention was then turned to the inferior aspect where again Zhanna clamps were placed in the rectus muscles were tented up and the fascia was dissected off sharply using the curved Santos scissor. Rectus muscles were then in the midline bluntly and peritoneum was entered bluntly. Gentle opposing traction was placed. At this time the vesicouterine peritoneum was identified. Scalpel was used to make a uterine incision in a low transverse fashion. The uterus was then entered bluntly gentle opposing traction was placed to extend this incision. meconium fluid noted. Infant's head was deep in pelvis but gently was elevated and was brought to the uterine incision was delivered atraumatically. Cord was clamped and cut was handed to the waiting nursery team. The Placenta was removed from the uterus. The uterus was then removed from the abdominal cavity. The uterus was cleared of all clots and debris using a lap. Defect on left broad ligament noted- left uterine artery noted- artery was clamped and sutured using 1-0 vicryl. defect in broad ligament noted and pressure with lap placed with uterine incision was reapproximated. At this time the uterine incision was reapproximated using #1 Vicryl in a running locked fashion. Hemostasis was appreciated. Posterior cul-de-sac was then cleared of all clots and debris. Broad ligament defected reevaluated- hemostatic as was the left uterine artery. decision at this time to not repair further- and place uterus back in abdominal cavity. Uterus was placed back in the abdominal cavity. Gutters were cleared of all clots and debris. Uterine incision was reevaluated and noted to be of excellent hemostasis. Blanca placed over left broad ligament defect and uterine incision. At this time the peritoneum was grasped with Kellys reapproximated using #2 Vicryl suture in a running fashion. Muscles then reapproximated using #2 Vicryl in a interrupted mattress suture fashion. Fascia was then reapproximated using #1 Vicryl in a running fashion. Subcu layer was reapproximated with #2 0 plain gut suture in an interrupted fashion. Subcu layer was closed using 4-0 Monocryl in a Sathya needle in a subcu fashion. Dry sterile dressing was applied. Instrument lap needle count correct ?2. Anticipated normal postoperative course. Presentation: Positive for Vertex Amniotic Membrane Rupture Type: Spontaneous Time of Membrane Ruptured: 0450 Amniotic Fluid Description: Moderate meconium Placental Delivery Description: Manual Removal Placenta Disposition: [facility] Specimen(s) Sent to Pathology: placenta Cord Vessel Description: 3 Vessels Cord Entanglement: None Infant A Gender: Male (1 minute): 5 (5 minute): 9 Delayed Cord Clamping: No Complications Risks of Surgery Discussed w/Patient: Bleeding, Anesthesia Risks, Infection, Need for Future C-Sections and Injury to surrounding structure(s) including bowel and bladder Complications: LEFT BROAD LIGAMENT EXTENSION- RECOMMEND NO LABOR with NEXT DELIVERY- WOULD CONSIDER DELIVERY 37-38 WEEKS- THIS WAS DISCUSSED AT TIME OF DELIVERY WITH PATIENT
[2022-10-11] MEDS: Oxytocin 15 Units/NS 250ml 15 UNITS/250 ML IV.SOLN 83 UNITS IV (18:05)
[2022-10-11] MEDS: Acetaminophen 500 MG Tablet 1000 MG PO (18:53)
[2022-10-11 19:15] LABS: Bedside Glucose 107 mg/dL (74-106)
[2022-10-11 19:59] LABS: Hematocrit 32.1 % (37-47); Hemoglobin 10.3 g/dL (12.0-15.0); Mean Corp Hgb Conc 32.1 g/dL (32-36); Mean Corpuscular Hgb 27.5 pg (27.0-32.0); Mean Corpuscular Volume 85.8 fL (81-99); Mean Platelet Vol. 9.1 fl (6.2-12.0); Platelet Count 201 K/mm3 (150-450); RBC Distribution Width CV 14.4 % (11.6-14.6); RBC Distribution Width SD 44.3 fl (35.1-43.9); Red Blood Count 3.74 M/mm3 (4.2-5.4); White Blood Count 14.8 K/mm3 (4.4-11.0)
[2022-10-11] MEDS: Ketorolac 30 MG/ML Syringe IV (20:35)
[2022-10-11] MEDS: 0.9% Saline Lock 10 ML Syringe IV (20:36)
[2022-10-11] MEDS: Lactated Ringers 1,000 ML 100 ML IV (21:16)
[2022-10-12] VITALS (9 sets, daily range): BP systolic 96–121; BP diastolic 43–67; PULSE 103–112; RESP 15–18; TEMP 36.6–37.4; O2SAT 95–100
[2022-10-12] MEDS: Acetaminophen 500 MG Tablet 1000 MG PO ×4 (00:04→18:18)
[2022-10-12] MEDS: Ketorolac 30 MG/ML Syringe IV ×3 (02:52→14:49)
[2022-10-12] MEDS: Lactated Ringers 1,000 ML 100 ML IV (05:03)
--- NOTE | 2022-10-12 05:17 | NURSING ---
cotter catheter removed at 0515
[2022-10-12 05:23] LABS: Hematocrit 30.1 % (37-47); Hemoglobin 9.4 g/dL (12.0-15.0); Mean Corp Hgb Conc 31.2 g/dL (32-36); Mean Corpuscular Hgb 27.2 pg (27.0-32.0); Platelet Count 178 K/mm3 (150-450); RBC Distribution Width CV 14.6 % (11.6-14.6); RBC Distribution Width SD 45.3 fl (35.1-43.9); Red Blood Count 3.46 M/mm3 (4.2-5.4); White Blood Count 11.5 K/mm3 (4.4-11.0)
[2022-10-12 06:45] LABS: Bedside Glucose 86 mg/dL (74-106)
--- NOTE | 2022-10-12 08:28 | PCM.PN.OB ---
Subjective Subjective Patient seen at bedside. Painful and receiving IV pain medication. Has not ambulated since surgery. Denies any headache, dizziness, vision changes, SOB or CP. Objective Data Objective Data Vital Signs: Vital Signs Temp Pulse Resp BP Pulse Ox O2 Del Method 98.2 F 112 H 18 96/43 L 95 Room Air 10/12/22 08:03 10/12/22 08:03 10/12/22 08:03 10/12/22 08:03 10/12/22 08:03 10/12/22 08:03 Oxygen Delivery Method Room Air Weight: 200 lb 2.876 oz Body Mass Index (BMI) 31.3 Intake & Output: Intake and Output for Last 24 Hours 10/10/22 10/11/22 10/12/22 23:59 23:59 23:59 Intake Total 1476.87 / 1476.87 7069.44 / 7069.44 1121.66 / 1121.66 Output Total 3700 / 3700 500 / 500 Balance 1476.87 / 776.87 3369.44 / 3369.44 621.66 / 621.66 Lab / Micro Data Result Diagrams: 10/12/22 05:10 Labs: Laboratory Results - last 24 hr 10/11/22 08:11: POC Glucose 69 L 10/11/22 10:35: POC Glucose 77 10/11/22 12:28: POC Glucose 68 L 10/11/22 13:41: POC Glucose 78 10/11/22 14:31: POC Glucose 83 10/11/22 15:37: POC Glucose 74 10/11/22 16:35: Crossmatch See Detail 10/11/22 18:50: POC Glucose 107 H 10/11/22 19:50: WBC 14.8 H, RBC 3.74 L, Hgb 10.3 L, Hct 32.1 L, MCV 85.8, MCH 27.5, MCHC 32.1, RDW Std Deviation 44.3 H, RDW Coeff of Dione 14.4, Plt Count 201, MPV 9.1 10/12/22 05:10: WBC 11.5 H, RBC 3.46 L, Hgb 9.4 L, Hct 30.1 L, MCV 87.0, MCH 27.2, MCHC 31.2 L, RDW Std Deviation 45.3 H, RDW Coeff of Dione 14.6, Plt Count 178, MPV 9.0 10/12/22 06:16: POC Glucose 86 ROS Eyes Eyes: Denies blurry vision, change in vision or spots in vision ENT HEENT: Denies dizziness or headache(s) Cardiovascular Cardiovascular: Denies abdominal pain, chest pain or dyspnea Respiratory/Chest Respiratory/Chest: Denies cough, dyspnea, shortness of breath at rest or shortness of breath with exertion Gastrointestinal Gastrointestinal: Denies abdominal pain, diarrhea or vomiting Genitourinary Genitourinary: Denies change in urinary stream, difficulty urinating or dysuria Musculoskeletal Musculoskeletal: Reports none Integumentary Integumentary: Denies rash Neurologic Neurologic: Denies dizziness, headache(s), memory loss or weakness Physical Exam Narrative Dressing is dry and intact Const alert and no apparent distress General Appearance: cooperative and comfortable Exam Limitations: no limitations HEENT normocephalic Eyes General Eye: normal appearance of both eyes Neck full ROM General: normal visual inspection Chest Chest: symmetrical chest wall rise Resp normal respiratory effort and normal air movement Effort and Inspection: symmetric chest movement Auscultation: clear to auscultation bilaterally Cardio regular rate and regular rhythm GI normal to inspection, nondistended, normoactive bowel sounds Back/Spine normal ROM Extremity no calf tenderness General Extremity: normal exam except as noted Skin no rashes or lesions noted Neuro CN's II-XII intact bilaterally Psych mental status grossly normal Assessment & Plan (1) GDM, class A2: (2) Status post primary low transverse section: (3) Post-operative pain: PLAN: Plan POD 1 Primary C/S Pain control Ambulate and void Breast feeding support Possible discharge home tomorrow
[2022-10-12] MEDS: Sertraline 50 MG Tablet 25 MG PO (10:15)
[2022-10-12] MEDS: Senna/Docusate Sodium 1 Tablet PO (10:16)
[2022-10-12] MEDS: 0.9% Saline Lock 10 ML Syringe IV ×2 (11:18→11:19)
[2022-10-12] MEDS: Ibuprofen 600 MG Tablet PO (21:07)
[2022-10-13] MEDS: Acetaminophen 500 MG Tablet 1000 MG PO ×3 (00:29→12:28)
[2022-10-13 02:45] VITALS: BP 108/66; PULSE 84; RESP 18; TEMP 36.5; O2SAT 97
[2022-10-13] MEDS: Ibuprofen 600 MG Tablet PO ×2 (03:03→09:16)
[2022-10-13 08:30] VITALS: BP 106/60; PULSE 98; RESP 18; TEMP 36.6; O2SAT 97
[2022-10-13] MEDS: Senna/Docusate Sodium 1 Tablet PO (09:16)
[2022-10-13] MEDS: Sertraline 50 MG Tablet 25 MG PO (09:16)
--- NOTE | 2022-10-13 09:59 | PCM.DC.SUM ---
Providers Date of Admission: 10/10/22 Primary Care Physician: Dr. Rebecca Gallegos MD Reason For Visit: primary c section Diagnosis Discharge Diagnosis (1) GDM, class A2: Status: Acute Code(s): O24.419 - Gestational diabetes mellitus in , unspecified control (2) Status post primary low transverse section: Status: Acute Code(s): Z98.891 - History of uterine scar from previous surgery (3) Post-operative pain: Status: Acute Code(s): G89.18 - Other acute postprocedural pain Plan POD 2 Primary C/S Pain control Ambulate and void Breast feeding support D/C home with follow up in office next week Medications at Discharge Home Medications PNV 153-FA 400 mcg-om3 35 mg-dha 25 mg-epa 5 mg-fish oil chew tablet ( Gummies) 2 tab PO DAILY 10/10/22 sertraline 25 mg tablet (Zoloft) 25 mg PO DAILY depression/anxiety 10/10/22 acetaminophen 500 mg tablet 1,000 mg PO Q6 #0 tabs 10/13/22 ibuprofen 600 mg tablet 600 mg PO Q6H #0 tabs 10/13/22 sennosides 8.6 mg-docusate sodium 50 mg tablet (Stool Softener-Stimulant Laxative) 1 - 2 tab PO DAILY #0 tabs 10/13/22 Hospital Course Operations section Summary of Care Provided Hospital Course: Patient was for primary section. Hospital course was uneventful. Physical Exam Narrative Patient seen at bedside. Feeling better today. Ambulating and voiding. Passing flatus. Denies headache, dizziness, SOB or CP. Pain is controlled with Motrin and Tylenol PO. with minimal support. Desires discharge home today. Const alert and no apparent distress General Appearance: cooperative and comfortable Exam Limitations: no limitations HEENT normocephalic Eyes General Eye: normal appearance of both eyes Neck full ROM General: normal visual inspection Chest Chest: symmetrical chest wall rise Resp normal respiratory effort and normal air movement Effort and Inspection: symmetric chest movement Auscultation: clear to auscultation bilaterally Cardio regular rate and regular rhythm GI normal to inspection, nondistended, normoactive bowel sounds Back/Spine normal ROM Extremity full ROM and no calf tenderness General Extremity: normal exam except as noted Skin no rashes or lesions noted Neuro CN's II-XII intact bilaterally Psych mental status grossly normal Weight / BMI Weight Weight: 200 lb 2.876 oz Body Mass Index (BMI) 31.3 ABG / Lab / Microbiology Data Result Diagrams: 10/12/22 05:10 D/C Instructions Discharge Diet: No restrictions Discharge Activity: No Restrictions and May Shower May resume sexual activity in: 6-8 weeks Weight Bearing Status: Weight bearing as tolerated Call your doctor if your incision/area has: Continuous Slow Oozing, Sudden Increased Bleeding, Increased Pain/ Swelling, Increased Redness, Foul Smelling Discharge and Swelling at the incision site Call your doctor if you observe: Fever of 101 or Higher, Change in Color, Using more than 1 pad per hour, Shortness of breath, Dizziness, Chest pain, Calf discomfort and Uncontrolled pain Suture Line Care: Avoid Pulling/Pushing Change Dressing in: leave in place till F/U Remove Dressing in: leave in place till F/U Please Follow Up With: Shante Manning MD When: 1 week for dressing removal and incision check Meaningful Use Info Meaningful Use Diagnoses (Choose all that apply): None applicable Discharge Plan Admission Admit Date/Time: 10/10/22 16:00 Primary Reason for Your Visit: Labor and Delivery Attending Provider: Ayleen Ponce Primary Care Provider: Rebecca Gallegos Discharge Orders/Prescriptions Prescriptions: New sennosides-docusate sodium [Stool Softener-Stimulant Laxat] 8.6-50 mg Tablet 1 - 2 tab PO DAILY Qty: 0 0RF ibuprofen 600 mg Tablet 600 mg PO Q6H Qty: 0 0RF acetaminophen 500 mg Tablet 1,000 mg PO Q6 Qty: 0 0RF Continued sertraline [Zoloft] 25 mg Tablet 25 mg PO DAILY Gummies 400 mcg-35 mg- 25 mg-5 mg Tablet,Chewable 2 tab PO DAILY Discontinued Humulin N NPH Insulin KwikPen 12 units 12 units OTHER QHS Rx Instructions: 12 units SC qhs Humulin N NPH Insulin KwikPen 14 units 14 units OTHER DAILY Rx Instructions: 14 units SC qam Referrals / Follow Up: Rebecca Gallegos MD [Primary Care Provider] - Disposition Disposition (needs filled in before D/C Order can be placed): Home, Self Care
--- NOTE | 2022-10-13 10:13 | CASEMGMT ---
Social Work Assessment Labor and Delivery Unit Date/Time of referral: 10/13/22, 12:48am Ordered by: Ayleen Ponce Date/Time of intervention: 10/13/22 9:50am Reason for Referral: Mental Health History obtained from: MOB and FOB initially. SW then spoke to MOB alone, FOB stepped out of the room. Household composition: FOB, MOB and now baby Jarvis. MOB and FOB have been together for 3.5 years Parent/Guardian Status: MOB and FOB are guardians of this baby. This is their first child. Medical History: MOB--anxiety, depression, asthma, gestational diabetes, PCOS. MOB takes Zoloft. Baby: Jarvis born 10/11/[birth year] at 16:41, 3780 g, Apgars 3 and 9 at one and five minutes. Educational status: MOB and FOB both graduated high school, MOB has taken some college classes Financial Status: No concerns. 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 Both plan to continue working. FOB's mother and father will watch the baby supplies: They have all needed supplies for baby including car seat, crib, bassinet, clothing, diapers, wipes, bottles and formula(if needed). MOB plans to breast feed Childcare/Caregivers: MOB and FOB. FOB's parents will care for the baby when MOB returns to work--they live [place] [address] away. MOB's sister and parents will also help, though they live 45 minutes away. Transportation: They have two vehicles. Programs/Agencies involved: None Children's Services/Legal Issues: None Behavioral Health Issues: Substance abuse: no history for MOB or FOB, no toxicology screens on this admission for MOB or baby. Mental Health: FOB--none. MOB--she states has history of anxiety and depression. SW spoke w/MOB further when FOB stepped out of room. She states she takes Zoloft, did have it increased last year when her grandfather . MOB states she started medication about 3 years ago, during Covid her symptoms were worse. She states that at that time she was put on 3 meds at once and it was too much, she couldn't move. Now on Zoloft she feels she is managing well. She has tried counseling in the past a couple of times but did not think it was helpful, states she doesn't think she found the right counselor. MOB explains her depression is more situational, had increased symptoms last year when her grandfather , and when her grandmother in June of this year. SW encouraged MOB to seek counseling again should she have an increase in symptoms. We also spoke about speaking w/her doctor about her medication should she have any symptoms of depression and/or anxiety. MOB states understanding. MOB reports to feel safe at home. Family/Social Stressors: None reported Support systems: Extended family and friends Depression and Anxiety/Shaken baby/safe sleeping/mental health hotline/Help Me Grow: SW reviewed all of this information w/both MOB and FOB, reviewed in particular the information around PPD and anxiety and warning signs. SW explained to both MOB and FOB the importance of following up w/her [employer] WR[employer] if having symptoms, and considering therapy again. Assessment: SW spoke w/MOB and FOB, both appropriate, answered all questions. Baby in bassinet during conversation so did not observe interaction w/baby. Plan: Baby to go home w/MOB and FOB at discharge. No further needs anticipated at this time. ANDREEA Amor
[2022-10-13 12:30] VITALS: BP 117/76; PULSE 90; RESP 18; TEMP 36.3; O2SAT 100
[2022-10-16 13:56] LABS: Pathology Specimen OB SEE PATHOLOGY REPORT
== END 2022-10-13 12:45 | disposition home or self-care (01) | DRG 787 ==
PROVIDERS: Obstetrics & Gynecology; Admitting Provider Advanced Practice Midwife; PCP Internal Medicine; Referring Provider Obstetrics & Gynecology; Visit Provider Advanced Practice Midwife
DX: O24.424 Gestational diabetes mellitus in childbirth, insulin controlled (principal); O99.355 Diseases of the nervous system complicating the puerperium; O62.1 Secondary uterine inertia; O77.0 Labor and delivery complicated by meconium in amniotic fluid; Z3A.38 38 weeks gestation of pregnancy; Z37.0 Single live birth; Z87.891 Personal history of nicotine dependence; G89.18 Other acute postprocedural pain; Y83.8 Other surgical procedures as the cause of abnormal reaction of the patient, or of later complication, without mention of misadventure at the time of the procedure
CPT/HCPCS: 59025; 59050; 82962; 85025; 85027; 86780; 86850; 86900; 86901; 86920; 88307; 99221; 99406; J7120; A4216; G0378; J2405; J3490

== ENCOUNTER 2024-07-09 05:13 | Inpatient (IN) | payer BC, SELFPAY ==
--- NOTE | 2024-07-07 12:58 | HP.PCM.OB_ITS ---
History and Physical Date of Admission: 07/09/24 Expand All Collapse All Pre-Op History and Physical HPI: The patient is a 28 year old female presenting for pre-operative visit. She is scheduled for , for repeat cs at 37 weeks- h/o broad ligament extension on 07/09/24. Procedure discussed along with risks, benefits and complications. Other alternatives discussed for management. Consent form signed? Yes. PAST MEDICAL HISTORY PAST MEDICAL HISTORY Diagnosis Date ? Abnormal Pap smear of cervix ? Asthma no attacks since 2017- no use of Inhaler since then ? GDM, class A2 08/28/2022 ? Generalized anxiety disorder ? History of gestational diabetes in prior , currently ? Major depressive disorder ? Migraine without aura and without status migrainosus, not intractable ? PCOS (polycystic ovarian syndrome) PAST SURGICAL HISTORY PAST SURGICAL HISTORY Procedure Laterality Date ? DELIVERY ONLY 10/11/2022 [facility] ? ORAL SURGERY PROCEDURE Fletcher Teeth and 3 other teeth. CURRENT MEDICATIONS Current Outpatient Medications Medication Sig Dispense Refill ? pantoprazole DR (PROTONIX) 20 mg tablet Take 1 tablet by mouth once daily. 30 tablet 1 ? albuterol HFA (PROVENTIL HFA, VENTOLIN HFA) 90 mcg/actuation inhaler Inhale 2 Puffs as instructed every 4 hours as needed for wheezing/shortness of breath. 1 Each 0 ? aspirin, enteric coated (ECOTRIN LOW STRENGTH) 81 mg EC tablet Take 1 tablet by mouth once daily. 90 tablet 3 ? hydrOXYzine pamoate (VISTARIL) 25 mg capsule Take 1 capsule by mouth daily at bedtime. 30 capsule 2 ? sertraline (ZOLOFT) 25 mg tablet Take 1 tablet by mouth every afternoon. ? no122/iron/folic acid ( MULTI ORAL) Take by mouth. ? ondansetron (ZOFRAN) 4 mg tablet Take 1 tablet by mouth every 8 hours as needed for nausea/vomiting. 30 tablet 2 No current facility-administered medications for this visit. ALLERGIES: Patient has no known allergies. PERSONAL HISTORY: SOCIAL HISTORY Social History Tobacco Use ? Smoking status: Former Current packs/day: 0.00 Average packs/day: 0.1 packs/day for 1 year (0.1 ttl pk-yrs) Types: Cigarettes Start date: 08/24/2020 Quit date: 08/24/2021 Years since quittin.8 ? Smokeless tobacco: Never Vaping Use ? Vaping status: Former ? Quit date: 10/23/2021 Substance Use Topics ? Alcohol use: Not Currently Alcohol/week: 1.0 standard drink of alcohol Types: 1 Glasses of Wine (5oz) per week Comment: Occasionally ? Drug use: Never FAMILY HISTORY: FAMILY HISTORY FAMILY HISTORY Problem Relation Age of Onset ? Diabetes Mother ? Hearing Loss Mother ? Migraines Father ? No Known Problems Sister ? No Known Problems Brother ? Heart Maternal Grandmother ? Hypertension Maternal Grandmother ? Hearing Loss Maternal Grandmother ? Hypertension Maternal Grandfather ? No Known Problems Paternal Grandmother ? Heart Paternal Grandfather ? Factor 5 Leiden Paternal Grandfather ? other (hemoglobin) Paternal Aunt REVIEW OF SYMPTOMS: negative except as noted above PHYSICAL EXAMINATION: VITALS: Blood pressure 110/60, weight 87.5 kg (193 lb), last menstrual period 10/24/2023, currently . GENERAL: The patient is well nourished, well hydrated in no acute distress. , The patient is oriented to time, place, and person. NECK: full range Abd: gravid, non tedner WET PREP: Not indicated IMPRESSION: 28yo @ 35.5 weeks- scheduled c/s at 37 weeks PLAN: Repeat cs at 37 weeks due to h/o Broad ligament extension Pt has been counseled on risks/benefits and alternatives of surgery including but not limited to anesthesia, bleeding, infection, injury to pelvic structures including bowel, bladder, ureters and vessels. Pt wishes to proceed with surgery at this time. Discussed early term delivery and risks/benefits. Pre op instructions reviewed. I have reviewed and updated past medical and surgical history, medications and allergies Shante Wilburn MD
[2024-07-09] VITALS (20 sets, daily range): BP systolic 97–118; BP diastolic 57–86; PULSE 76–110; RESP 11–25; TEMP 36.3–36.7; O2SAT 92–100; BMI 30.7
[2024-07-09] MEDS: Lactated Ringers 1,000 ML 999 ML IV (05:35)
[2024-07-09 05:53] LABS: Absolute Lymphocyte Count 1.22 X10^3/uL (0.83-4.51); Absolute Neutrophil Count 5.3 X10^3/uL (2.0-7.7); Basophil# 0.02 X10^3/uL; Basophil% 0.3 % (0-1); Eosinophil# 0.17 X10^3/uL; Eosinophils% 2.4 % (0-5); Hematocrit 33.2 % (37-47); Hemoglobin 10.9 g/dL (12.0-15.0); Lymphocyte # 1.22 X10^3/ul (0.83-4.51); Mean Corp Hgb Conc 32.8 g/dL (32-36); Mean Corpuscular Hgb 26.7 pg (27.0-32.0); Mean Corpuscular Volume 81.2 fL (81-99); Mean Platelet Vol. 8.7 fl (6.2-12.0); Monocyte# 0.48 X10^3/uL; Monocyte% 6.7 % (0-10); NRBC Flagged by Analyzer 0 % (0-5); Neutrophil # 5.26 X10^3/uL (2.7-7.7); Platelet Count 236 K/mm3 (150-450); RBC Distribution Width CV 14.1 % (11.6-14.6); RBC Distribution Width SD 41.1 fl (35.1-43.9); Red Blood Count 4.09 M/mm3 (4.2-5.4); White Blood Count 7.2 K/mm3 (4.4-11.0)
[2024-07-09] MEDS: Acetaminophen 500 MG Tablet 1000 MG PO ×3 (06:38→18:29)
[2024-07-09] MEDS: Sodium Citrate/Citric Acid 30 ML UDC PO (07:01)
[2024-07-09] MEDS: Cefazolin 2 GM in Syringe IV (07:40)
--- NOTE | 2024-07-09 08:34 | OP.PCM_ITS ---
Operative Report (OB) Cecarean Details Procedure Type: low transverse Date of Procedure: 07/09/24 Procedure Start Time: 07:48 Procedure Stop Time: 08:33 Time of Delivery: 07:54 Pre-Operative Diagnosis: Repeat Elective and Other Other Pre-Operative diagnosis: h/o Broad ligament rupture with previous delivery Post-Operative Diagnosis: Same as Pre-operative diagnosis Classification: Scheduled Type of Anesthesia: Spinal Special Medications: hemobloast Antibiotic Given: Ancef 2 grams IV x1 Drain: Rivera to straight drain Estimated Blood Loss: 600 Fluids Replaced: 1000 Findings Description of surgery: After informed consent was obtained the patient was taken the operating room she was given spinal anesthesia. She was then placed in the supine position. She was prepped and draped in the normal sterile fashion. Anesthesia was found to be adequate. At this time a Pfannenstiel skin incision was made with a knife was carried down to the underlying layer of the fascia. The fascial incision was then extended laterally using traction. Attention was then turned to the superior aspect of the fascial edge was grasped with 2 straight [place] clamps tented up and the rectus muscle dissected off blunty. Rectus muscles were then in the midline bluntly and peritoneum was entered sharply. Gentle opposing traction was placed. At this time the vesicouterine peritoneum was identified. right fallopian tube found to be traversing the uterus to the midsection- this was gentle dissected down to be able to make the uterine incision. A bladder flap was then created. Scalpel was used to make a uterine incision in a low transverse fashion. The uterus was then entered bluntly gentle opposing traction was placed to extend this incision. Membranes were ruptured clear. Infant's head was brought to the uterine incision was delivered atraumatically. was vigorous at delivery and delayed cord clamping performed. Cord was clamped and cut was handed to the waiting nursery team. The Placenta was removed from the uterus. The uterus was then removed from the abdominal cavity. The uterus was cleared of all clots and debris using a lap. At this time the uterine incision was reapproximated using #1 Vicryl in a running locked fashion. Hemostasis was appreciated. Posterior cul-de-sac was then cleared of all clots and debris. At this time continued dissection of the right fallopian tube was carried out and clear spaces to drop the fallopian tube off of the uterus. This was successful and the fallopian tube was free of adhesive disease from the uterus. The left tube was evaluated and again noted to be adherent to the uterus this fallopian tube was then dissected off of the u terus small amount of oozing was noted on the serosal edge at this time Hemoblast was placed and pressure was held. Excellent hemostasis was then appreciated. Uterus was placed back in the abdominal cavity. Gutters were cleared of all clots and debris. Uterine incision was reevaluated and noted to be of excellent hemostasis. bilateral tubes hemostatic. At this time the peritoneum was grasped with Kellys reapproximated using #2 Vicryl suture in a running fashion. Fascia was then reapproximated using #1 Vicryl in a running fashion. Subcu layer was irrigated with NS, reapproximated with #2 0 plain gut suture in an interrupted fashion. Subcu layer was closed using 4-0 Monocryl in a subcu fashion. Dry sterile dressing was applied. Instrument lap needle count correct ?2. Anticipated normal postoperative course. Surgical findings: bilateral fallopian tubes adherent to the uterus. the right tube traversing the uterus. Presentation: Vertex Amniotic Membrane Rupture Type: Artificial Amniotic Fluid Description: Clear Placental Delivery Description: Expressed Placenta Disposition: [facility] Specimen collected: Yes Description of specimen(s) removed: placenta Cord Vessel Description: 3 Vessels Cord Entanglement: None Infant A gender: Female (1 minute): 8 (5 minute): 9 Delayed Cord Clamping: Yes Isobutylene Operator Chief pipeline superintendent division: Yes Inside Sales Executive: Kenan Camarena Tasks completed by medical assistant internal medicine: Opening & closing, Dissecting tissue and Retracting Additional speech pathology assistant?: Yes Additional Insurance Agency Sales Manager #2: leandro gentile Tasks completed by speech pathology assistant #2: Other (cutting suture ) Complications Complications: No
[2024-07-09] MEDS: Oxytocin 15 Units/NS 250ml 15 UNITS/250 ML IV.SOLN 83 UNITS IV (08:45)
[2024-07-09] MEDS: Ketorolac 30 MG/ML Syringe IV ×3 (09:28→21:33)
[2024-07-09 09:42] LABS: Syphilis Antibodies Non-reactive
[2024-07-09] MEDS: Lactated Ringers 1,000 ML 100 ML IV (12:03)
[2024-07-09] MEDS: Ondansetron 4 MG/2 ML Vial IV (12:14)
[2024-07-09] MEDS: Sertraline 50 MG Tablet 25 MG PO (18:29)
[2024-07-09] MEDS: 0.9% Saline Lock 10 ML Syringe IV (21:33)
[2024-07-10] MEDS: Acetaminophen 500 MG Tablet 1000 MG PO ×3 (00:28→11:59)
[2024-07-10 00:30] VITALS: BP 95/61; PULSE 83; RESP 17; TEMP 36.4; O2SAT 99
[2024-07-10] MEDS: Ketorolac 30 MG/ML Syringe IV (04:24)
[2024-07-10] MEDS: 0.9% Saline Lock 10 ML Syringe IV (04:24)
[2024-07-10 04:25] VITALS: BP 93/60; PULSE 98; RESP 18; TEMP 36.3; O2SAT 98
[2024-07-10 06:31] LABS: Hematocrit 28.3 % (37-47); Hemoglobin 8.9 g/dL (12.0-15.0); Mean Corp Hgb Conc 31.4 g/dL (32-36); Mean Corpuscular Hgb 25.9 pg (27.0-32.0); Mean Corpuscular Volume 82.5 fL (81-99); Mean Platelet Vol. 8.9 fl (6.2-12.0); Platelet Count 201 K/mm3 (150-450); RBC Distribution Width CV 14.4 % (11.6-14.6); RBC Distribution Width SD 42.9 fl (35.1-43.9); Red Blood Count 3.43 M/mm3 (4.2-5.4)
[2024-07-10 07:25] VITALS: BP 105/70; PULSE 89; RESP 18; TEMP 36.3; O2SAT 98
--- NOTE | 2024-07-10 07:45 | DS.PCM_ITS ---
Providers Date of Admission: 07/09/24 Primary Care Physician: Dr. Rebecca Gallegos MD Reason For Visit: C SECTION Diagnosis Discharge Diagnosis (1) Mother currently breast-feeding: Status: Acute Code(s): Z39.1 - Encounter for care and examination of lactating mother (2) Status post primary low transverse section: Status: Acute Code(s): Z98.891 - History of uterine scar from previous surgery (3) Post-operative pain: Status: Acute Code(s): G89.18 - Other acute postprocedural pain Plan POD 1 C/S Pain control Increase ambulation support D/C home with follow up in office this week Medications at Discharge Home Medications PNV 153-FA 400 mcg-om3 35 mg-dha 25 mg-epa 5 mg-fish oil chew tablet ( Gummies) 2 tab PO DAILY 10/10/22 sertraline 25 mg tablet (Zoloft) 25 mg PO DAILY depression/anxiety 10/10/22 acetaminophen 500 mg tablet 1,000 mg (2 x 500 mg) PO Q6 PAIN #0 tabs 10/13/22 ibuprofen 600 mg tablet 600 mg PO Q6H PAIN #0 tabs 10/13/22 sennosides 8.6 mg-docusate sodium 50 mg tablet (Stool Softener-Stimulant Laxative) 1 - 2 tab PO DAILY CONSTIPATION #0 tabs 10/13/22 acetaminophen 500 mg tablet 1,000 mg (2 x 500 mg) PO Q6H #0 tabs 07/10/24 ibuprofen 600 mg tablet 600 mg PO Q6H #0 tabs 07/10/24 sennosides 8.6 mg-docusate sodium 50 mg tablet (Stimulant Laxative Plus) 1 - 2 tab PO DAILY #0 tabs 07/10/24 Hospital Course Operations section Procedures None Summary of Care Provided Minutes Spent on Discharge: 15 Hospital Course: Patient had section. Hospital course was uneventful. Physical Exam Narrative Dressing is dry and intact Const alert and no apparent distress General Appearance: cooperative and comfortable Exam Limitations: no limitations HEENT normocephalic Eyes General Eye: normal appearance of both eyes Neck full ROM General: normal visual inspection Chest Chest: symmetrical chest wall rise Resp normal respiratory effort and normal air movement Effort and Inspection: symmetric chest movement Auscultation: clear to auscultation bilaterally Cardio regular rate and regular rhythm GI normal to inspection, nondistended, normoactive bowel sounds Back/Spine normal ROM Extremity full ROM and no calf tenderness General Extremity: normal exam except as noted Skin no rashes or lesions noted Wound Narrative: Dressing is dry and intact. Neuro CN's II-XII intact bilaterally Psych mental status grossly normal Weight / BMI Weight Weight: 195 lb 12.8 oz Body Mass Index (BMI) 30.7 ABG / Lab / Microbiology Data 07/10/24 06:05 Laboratory: Laboratory Results - last 24 hr 07/09/24 05:30: Syphilis Total Ab Non-reactive, Antibody Screen NEGATIVE 07/10/24 06:05: WBC 9.0, RBC 3.43 L, Hgb 8.9 L, Hct 28.3 L, MCV 82.5, MCH 25.9 L , MCHC 31.4 L, RDW Std Deviation 42.9, RDW Coeff of Dione 14.4, Plt Count 201, MPV 8.9 D/C Instructions Discharge Diet: No restrictions Discharge Activity: May Drive (2 weeks) and May Shower May resume sexual activity in: 6-8 weeks Weight Bearing Status: Weight bearing as tolerated Lifting Restricted to (Lbs): 25 Call your doctor if your incision/area has: Continuous Slow Oozing, Sudden Increased Bleeding, Increased Pain/ Swelling, Increased Redness, Foul Smelling Discharge and Swelling at the incision site Call your doctor if you observe: Fever of 101 or Higher, Numbness or Tingling, Using more than 1 pad per hour, Shortness of breath, Dizziness, Swelling in the ankles, Chest pain, Calf discomfort and Uncontrolled pain Suture Line Care: Avoid Pulling/Pushing Remove Dressing in: 5 days (Remove yourself or call office and schedule appointment for dressing removal.) DC O2, CPAP, BIPAP Needs Home O2 Discharge instructions: No When: 5 days for dressing removal or 2 weeks for post appointment. Meaningful Use Info Meaningful Use Meaningful Use Diagnoses (Choose all that apply): None applicable Ischemic Stroke Statin Dosing Therapy Reference: STATIN DOSE THERAPY REFERENCE: * Patients > 75 years receive moderate or high dose statin therapy. * Patients 75 years or YOUNGER should receive HIGH intensity statin dose unless contraindicated. You will be required to document reason for non-treatment if statin daily dose does not meet guidelines. HIGH DOSE STATIN THERAPY DAILY Atorvastatin > than or = to 40 mg Rosuvastatin > than or = to 20 mg Amlodipine + Atorvastatin > than or = to 2.5/40 mg Ezetimibe + Simvastatin 10/80 mg Simvastatin 80mg Discharge Plan Admission Admit Date/Time: 07/09/24 05:13 Primary Reason for Your Visit: Section Attending Provider: Shante Manning Primary Care Provider: Rebecca Gallegos Discharge Orders/Prescriptions Prescriptions: New acetaminophen 500 mg Tablet 1,000 mg PO Q6H Qty: 0 0RF sennosides-docusate sodium [Stimulant Laxative Plus] 8.6-50 mg Tablet 1 - 2 tab PO DAILY Qty: 0 0RF ibuprofen 600 mg Tablet 600 mg PO Q6H Qty: 0 0RF Continued sertraline [Zoloft] 25 mg Tablet 25 mg PO DAILY No Action Gummies 400 mcg-35 mg- 25 mg-5 mg Tablet,Chewable 2 tab PO DAILY sennosides-docusate sodium [Stool Softener-Stimulant Laxat] 8.6-50 mg Tablet 1 - 2 tab PO DAILY Qty: 0 0RF ibuprofen 600 mg Tablet 600 mg PO Q6H Qty: 0 0RF acetaminophen 500 mg Tablet 1,000 mg PO Q6 Qty: 0 0RF Referrals / Follow Up: Rebecca Gallegos MD [Primary Care Provider] - Disposition Disposition (needs filled in before D/C Order can be placed): Home, Self Care
[2024-07-10] MEDS: Senna/Docusate Sodium 1 Tablet PO (10:21)
[2024-07-10] MEDS: Ibuprofen 600 MG Tablet PO ×2 (10:21→15:42)
[2024-07-10 13:35] VITALS: BP 118/64; PULSE 87; RESP 16; TEMP 36.7; O2SAT 98
--- NOTE | 2024-07-10 14:30 | CASEMGMT ---
Social Work Assessment Labor and Delivery Unit Patient Address: [address] [place] [address] Phone number: [phone] Date of Referral: 07/09/24 Time of Referral:? 1701 Referred By: Dr. Kamran Wilburn Date of Intervention: ??07/10/24 Time of Intervention:? 1005 Reason for Referral:? anxiety, depression Sw completed chart review and acknowledges social work consult due to maternal history of anxiety and depression. Sw presented to bedside and introduced self to mother of baby (JAYLIN- Ginger) and father of baby (FOAdela- Casey). Sw explained reason for sw involvement and completed psychosocial assessment. History obtained from: medical records, MOB and FOB ? Household composition: Currently residing in the family home is MENDEZ MOSQUEDA, their 1 year old son, Alejandra and baby when ready for discharge. Parents deny any issues or concerns with housing, stating that it is safe and secure. Patient's parent/guardian status:?JAYLIN states that she and MENDEZ have been together for five years after meeting each other through mutual friends. This is second baby for both parents together. No concerns reported of domestic violence or intimate partner violence. ? Medical History: ?JAYLIN is 28 year old female who is 2, para 1- now 2 following labor and delivery of . JAYLIN received routine care during with [facility]. JAYLIN presented to hospital and delivered baby via repeat on 07/09/24 at 37 weeks gestation. Baby girl, named Elma Walden, was born weighing 7lb 5oz with apgars of 8 and 9 at one and five minutes of life respectfully. JAYLIN reports that she is breast feeding and it is going okay. Baby will be followed by Dr. Nicholas for pediatrics. Educational Status: Both parents graduated from high school, MENDEZ has obtained some college. Parents deny any problems or concerns with reading, writing or learning. ? Financial Status: Both parents are gainfully employed outside of the home. 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 Infant Supplies: All necessary baby supplies obtained, including: car seat, safe sleep space, clothes, diapers and wipes. Childcare/Caregiver(s):? MOB will be the primary caregiver to baby until she returns to work and then paternal grandma will watch the children. Transportation:?? Both parents have their drivers license and reliable means of transportation, no barriers. Programs/Agencies Involved: ??Parents are not connected to any community agencies that assist them financially at this time as they are over income. ? Children Services/Legal Issues:?No history of children services involvement, no issues or concerns warranting referral to be made at this time. ? Behavioral Health Issues: ??Mental Health History:MENDEZ denies mental health history. MOB states that she has been diagnosed with anxiety and depression. MOB states that she did not experience any symptoms during her last period. MOB states that she is prescribed Protonix, Vistaril and Zoloft. JAYLIN's OBGYN is her prescriber. Substance Use History:??Parents deny any substance use prior to and during . Family History: Parents deny family history of substance use or significant mental health diagnoses.Drug Screens: NO drug screens observed during chart review. Family/Social Stressors:? Parents deny any issues, concerns or stressors at this time. Support Systems: JAYLIN identifies that MENDEZ and her sister are her biggest supports. Depression/Shaken Baby/Safe Sleeping: Sw educated parents on signs and symptoms of baby blues and mood and anxiety disorders to be mindful of during this period. MOB states that she is familiar with what to be on the lookout for. Sw explained that due to maternal mental health history she is more at risk for experiencing the baby blues, and/or depression/ anxiety. MOB and FOB express understanding. FOB states that if MOB were to struggle he would be able to recognize that and would know how to help and support her. ASSESSMENT:? MOB and baby admitted following labor and delivery. MOB and FOAdela are and this is their second baby together. Parents observed to be supportive to one another. MENDEZ recognizes MOB mental health history and how this may impact her period. MOB connected to mental health supports through her OBGYN who is her pharmacological prescriber. MOB and FOB attentive and talkative throughout conversation and completion of assessment. Parents have natural supports in place and have obtained all necessary baby supplies. MOB in upbeat mood and denies any anxiety, depression or sadness at this time. PLAN:?? No other services requested or indicated. MOB and baby to be discharged when medically ready. Parents were provided literature regarding: signs and symptoms of baby blues and mood and anxiety disorders, Help Me Grow, shaken baby prevention, ABCs of safe sleep and a list of [facility] resources that are available for them should any needs present themselves. Mega Ortega, ELECTRONIC HEAT SEAL OPERATOR, FISH FARM LABORER
--- NOTE | 2024-07-14 18:11 | NURSING ---
Attempted to call Ginger for a follow-up post- phone call. No answer. Voicemail left.
== END 2024-07-10 16:45 | disposition home or self-care (01) | DRG 788 ==
PROVIDERS: Admitting Provider Obstetrics & Gynecology; PCP Internal Medicine; Referring Provider Obstetrics & Gynecology; Visit Provider Obstetrics & Gynecology
PROC: 10D00Z1 Extraction of Products of Conception, Low, Open Approach (ICD-10-PCS; CPT 59514; principal; 2024-07-09 07:00)
DX: O34.211 Maternal care for low transverse scar from previous cesarean delivery (principal); F32.9 Major depressive disorder, single episode, unspecified; O99.344 Other mental disorders complicating childbirth; F41.1 Generalized anxiety disorder; Z37.0 Single live birth; Z3A.37 37 weeks gestation of pregnancy; Z86.32 Personal history of gestational diabetes; Z87.891 Personal history of nicotine dependence
CPT/HCPCS: 59025; 59050; 85025; 85027; 86780; 86850; 86900; 86901; 99221; A4216; G0378; J2405